=== PATIENT | female | born 1975 | race Caucasian/White ===

== ENCOUNTER 2016-09-06 12:17 | Emergency (ER) | payer OTHER ==
[~2016-09-06] VITALS: Ht 157.5 cm; Wt 65.3 kg
[2016-09-06 13:18] LABS: BASOPHIL % 0.9 % (0-2); PLATELET COUNT 186 x10^3mcL (130-400); RED CELL DISTRIBUTION WIDTH 12.6 % (11.5-14.5)
[2016-09-06 13:36] LABS: CALCIUM 9.8 mg/dL (8.5-10.1); CARBON DIOXIDE 22.8 mmol/L (21-32); CHLORIDE SERUM 108 mmol/L (98-107); CREATININE SERUM 0.8 mg/dL (0.6-1.0); GFR1 > 60 mL/min; GLUCOSE SERUM 91 mg/dL (74-106); POTASSIUM SERUM 4.3 mmol/L (3.5-5.1); SODIUM SERUM 139 mmol/L (136-145)
[2016-09-06 13:40] LABS: ALBUMIN 3.6 g/dL (3.4-5.0); ALKALINE PHOSPHATASE 67 U/L (46-116); ALT/SGPT 15 U/L (14-59); AMYLASE 47 U/L (25-115); AST/SGOT 15 U/L (15-37); BILIRUBIN TOTAL 0.61 mg/dL (0.20-1.00); LIPASE 183 IU/L (73-393); TOTAL PROTEIN, SERUM 6.9 g/dL (6.4-8.2)
[2016-09-06 13:56] LABS: UA SPECIFIC GRAVITY 1.015 (1.005-1.035); microscopic required? YES; urine erythrocyte 2+ (NEGATIVE)
[2016-09-06 17:13] VITALS: BP 134/71
== END 2016-09-06 17:13 | disposition home or self-care (01) ==
LOC: EDBD 12:17 → ED 12:17
PROVIDERS: Specialist
DX: R10.32 Left lower quadrant pain (principal); J45.909 Unspecified asthma, uncomplicated; M41.86 Other forms of scoliosis, lumbar region; Z90.89 Acquired absence of other organs
CPT/HCPCS: J1885; J3010; J7030